=== PATIENT | female | born 1950 | race Caucasian/White ===

== ENCOUNTER 2017-03-17 09:51 | Emergency (ER) | payer MEDICARE, OTHER ==
--- NOTE | 2017-03-17 11:13 | XRAY Preliminary Report ---
Exam: XR Wrist 3 View LT Impression: Cortical irregularity involving the radial styloid process that may represent a fracture. If further characterization is needed and/or an occult scaphoid fracture is suspected, a MRI of the left wrist is recommended. Mild to moderate osteoarthritis of the first carpometacarpal joint. [facility] SITE ID: [id number]
--- NOTE | 2017-03-17 11:16 | XRAY Report ---
EXAM: LEFT WRIST RADIOGRAPHY EXAM DATE: 03/17/2017 10:55 AM. CLINICAL HISTORY: Fell. COMPARISON: None. TECHNIQUE: 3 views. FINDINGS: Joint space narrowing and osteophyte formation is seen involving the first carpal metacarpal joint. T here is no evidence of a displaced fracture. The remainder of the joint spaces are well preserved. Th ere is cortical irregularity involving the radial styloid process. This may represent a fracture. Impression: Cortical irregularity involving the radial styloid process that may represent a fracture. If further characterization is needed and/or an occult scaphoid fracture is suspected, a MRI of the left wrist is recommended. Mild to moderate osteoarthritis of the first carpometacarpal joint. [facility] Referring Provider Line: [phone] SITE ID: [id number]
--- NOTE | 2017-03-17 11:59 | ED Physician Documentation ---
PD HPI UPPER EXT INJURY - Stated complaint Stated Complaint: ARM PX - Chief complaint Chief Complaint: Ext Problem - History obtained from History obtained from: Patient - History of Present Illness Location: Left, Wrist Type of injury: Fall Timing - onset: Yesterday - Additonal information Additional information: The patient is a 67-year-old female who fell yesterday catching herself on outstretched left hand. She presents now complaining of left wrist pain. She denies any other injuries. She is right hand dominant. Review of Systems Constitutional: denies: Fever Nose: denies: Congestion Cardiac: denies: Chest pain / pressure Respiratory: denies: Dyspnea Musculoskeletal: reports: Joint pain (left wrist). 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 HEENT: Tonsil/Adenoidectomy - Present Medications Home Medications: Ambulatory Orders Medication Instructions Recorded Confirmed Spironolactone 25 mg PO BID 03/17/17 03/17/17 - Allergies Allergies/Adverse Reactions: Allergies Allergy/AdvReac Type Severity Reaction Status Date / Time No Known Drug Allergies Allergy Verified 03/17/17 10:03 - Social History Does the pt smoke?: No Smoking Status: Never smoker PD ED PE NORMAL - Vitals Vital signs reviewed: Yes (normal) - General General: Alert and oriented X 3, Well developed/nourished - HEENT HEENT: Atraumatic - Neck Neck: No bony TTP - Cardiac Cardiac: RRR - Respiratory Respiratory: No respiratory distress - Back Back: No spinal TTP - Derm Derm: No rash - Extremities Extremities: No deformity, Other (There is tenderness to palpation at the distal aspect of the left radius, just proximal to the wrist. There is no tenderness to palpation over the scaphoid bone, and no tenderness at the ulnar aspect of the wrist. She demonstrates full flexion and extension of the wrist, as well as supination and pronation of the forearm. Distal neurovascular is intact.) - Neuro Neuro: Alert and oriented X 3, No motor deficit, No sensory deficit Results - Vitals Vitals: Vital Signs - 24 hr 03/17/17 12:35 Temperature 36.1 C L Heart Rate 69 Respiratory 18 Rate Blood Pressure 149/85 H O2 Saturation 100 Oxygen O2 Source Room air - Rads (name of study) left wrist Radiology: Prelim report reviewed, EMP read contemporaneously, See rad report ( Cortical irregularity involving the radial styloid process that may represent a fracture. IF further characterization is needed and or an occult scaphoid fracture is suspected, an MRI of this left wrist is recommended. Mild to moderate osteoarthritis of the first carpometacarpal joint.) Procedures - Splint (location) left upper extremity Splint applied by: [employer] Type of splint: Prefab velcro wrist Other: Patient tolerated well, No complications, Neurovascular intact, Sling provided PD MEDICAL DECISION MAKING - ED course Complexity details: reviewed results, re-evaluated patient, considered differential, d/w patient ED course: The patient's presentation is significant for a chip fracture of the left radial styloid. Treatment in the emergency department included administration of a prefab Velcro thumb spica splint, and application of an arm sling. Ibuprofen 600 mg is administered orally. I discussed with her the expected course of injury, symptomatic treatment and outpatient follow-up, as well as potentially worrisome signs or symptoms that should prompt reevaluation in the emergency department. Departure - Departure Disposition: 01 Home, Self Care Clinical Impression: Radial styloid fracture Qualifiers: Encounter type: initial encounter Fracture type: closed Fracture alignment: nondisplaced Laterality: left Qualified Code(s): S52.515A - Nondisplaced fracture of left radial styloid process, initial encounter for closed fracture Condition: Stable Instructions: ED Fx Upper Ext Follow-Up: [facility] [Provider Group] Comments: Keep your left arm elevated as much the time as possible. Apply ice pack intermittently for the next 3 or 4 days. Use the wrist splint to help immobilize the joint. He can use the arm sling if it provides comfort. You can use ibuprofen, up to 800 mg 3 times daily to help with discomfort. Follow-up with orthopedics. Call to schedule next available appointment. Return to the emergency department if you develop increasing pain or swelling, or otherwise worsening symptoms. Discharge Date/Time: 03/17/17 12:35
[2017-03-17] MEDS ORDERED: IBUPROFEN 600 MG TABLET PO STA (12:08)
[2017-03-17] MEDS ORDERED: IBUPROFEN 600 MG TABLET PO ONE (12:15)
[2017-03-17 12:36] VITALS: BP 149/85
== END 2017-03-17 12:35 | disposition home or self-care (01) ==
LOC: ED 09:51
DX: S52.515A Nondisplaced fracture of left radial styloid process, initial encounter for closed fracture (principal); W01.0XXA Fall on same level from slipping, tripping and stumbling without subsequent striking against object, initial encounter
CPT/HCPCS: 73110; 99283; A9270

== ENCOUNTER 2017-05-19 09:15 | Outpatient (CLI) | payer MEDICARE, OTHER ==
--- NOTE | 2017-05-19 13:01 | DEXA Report ---
DEXA SCAN: 05/19/2017 CLINICAL INDICATION: Osteopenia. TECHNIQUE: Dual energy x-ray absorptiometry (DXA) was performed on a [employer] system. Regions measured are the AP spine, femoral neck, and, if needed, forearm. COMPARISON: None. In accordance with the International Society for Clinical Densitometry (ISCD) guidelines, data from previous exams may be reanalyzed using current recommendations and techniques. This is done to allow a more accurate basis for comparison with the current study. FINDINGS The data for the lumbar spine is as follows: REGION BMD (g/cm/cm) T-SCORE Z-SCORE L1 0.834 -2.5 -1.0 L2 1.167 -0.3 1.2 L3 1.130 -0.6 0.8 L4 1.024 -1.5 0.0 TOTAL 1.036 -1.2 0.2 NOTE: All evaluable vertebrae are used for classification. The data for the hip is as follows: REGION BMD (g/cm/cm) T-SCORE Z-SCORE Neck 0.755 -2.0 -0.7 TOTAL 0.834 -1.4 -0.3 NOTE: The femoral neck or total proximal femur, whichever is lowest, is used for classification. IMPRESSION: THE WHO CLASSIFICATION BASED ON THE INTERNATIONAL REFERENCE STANDARD IS OSTEOPENIA. THE FRACTURE RISK IS INCREASED. RECOMMENDATION: Patients with diagnosis of osteoporosis or osteopenia should have regular bone mineral density assessment. For those eligible for Medicare, routine testing is allowed once every 2 years. Testing frequency can be increased for patients who have rapidly progressing disease or for those who are receiving medical therapy to restore bone mass. COMMENT: World Health Organization (WHO) definitions for osteoporosis and osteopenia: NORMAL BMD: T-score at -1.0 or higher, fracture risk is low. OSTEOPENIA BMD: T-score between -1.0 and -2.5, fracture risk is increased. OSTEOPOROSIS BMD: T-score at -2.5 or lower, fracture risk high. National Osteoporosis Foundation recommends: 1. Obtain adequate dietary calcium (at least 1200 mg per day) and vitamin D (400 -800 international units per day). 2. Participate, as appropriate, in regular weightbearing and muscle- strengthening exercise. 3. Avoid tobacco use and reduce alcohol and caffeine intake. 4. For more detailed information see the website at www.NOF.org. MTDD
== END 2017-05-19 09:16 | disposition home or self-care (01) ==
LOC: DI 09:15
PROVIDERS: ATTEND Naturopath
DX: M85.89 Other specified disorders of bone density and structure, multiple sites (principal)
CPT/HCPCS: 77080

== ENCOUNTER 2018-07-04 09:05 | Emergency (ER) | payer MEDICARE, OTHER ==
--- NOTE | 2018-07-04 09:25 | ED Physician Documentation ---
PD HPI UPPER EXT INJURY - Stated complaint Stated Complaint: R ARM INJURY - History obtained from History obtained from: Patient - History of Present Illness Location: Right Type of injury: Fall (slipped on slippery area and fell, catching fall with right hand. Pain at right wrist.) Where injury occurred: Home Timing - onset: Last night, Yesterday Timing - details: Abrupt onset, Still present Improved by: Rest, Ice Worsened by: Moving, Palpating Associated symptoms: Swelling. 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 HEENT: Tonsil/Adenoidectomy - Present Medications Home Medications: Ambulatory Orders Medication Instructions Recorded Confirmed Spironolactone 25 mg PO BID 03/17/17 03/17/17 Naproxen 375 mg PO BID #20 tablet 07/04/18 Tramadol HCl 50 mg PO Q6H PRN #20 tablet 07/04/18 - Allergies Allergies/Adverse Reactions: Allergies Allergy/AdvReac Type Severity Reaction Status Date / Time No Known Drug Allergies Allergy Verified 07/04/18 09:32 - Social History Does the pt smoke?: No Smoking Status: Never smoker PD ED PE NORMAL - Vitals Vital signs reviewed: Yes - General General: Alert and oriented X 3, Well developed/nourished - HEENT HEENT: Atraumatic - Neck Neck: No bony TTP - Cardiac Cardiac: RRR, No murmur - Respiratory Respiratory: Clear bilaterally - Abdomen Abdomen: Soft, Non tender - Derm Derm: Normal color, Warm and dry - Extremities Extremities: Other (right distal forearm with tenderness and swelling. Able to move fingers. Good pulses at wrist. Normal cap refill in fingers. ) Results - Vitals Vitals: Vital Signs - 24 hr 07/04/18 07/04/18 09:10 11:30 Temperature 36.3 C L 36.4 C L Heart Rate 79 74 Respiratory 16 18 Rate Blood Pressure 169/77 H 162/71 H O2 Saturation 100 100 Oxygen O2 Source Room air - Rads (name of study) right wrist Radiology: Prelim report reviewed (distal radius fracture with slight angulation. ) Procedures - Splint (location) right wrist Splint applied by: Tech Type of splint: Fiberglass, Sugar tong Other: Patient tolerated well, No complications, Neurovascular intact, Sling provided PD MEDICAL DECISION MAKING - ED course Complexity details: reviewed results, considered differential, d/w patient Departure - Departure Disposition: 01 Home, Self Care Clinical Impression: Fall from slip, trip, or stumble Qualifiers: Encounter type: initial encounter Qualified Code(s): W01.0XXA - Fall on same le nirmal from slipping, tripping and stumbling without subsequent striking against object, initial encounter Distal radius fracture, right Qualifiers: Encounter type: initial encounter Fracture type: closed Fracture morphology: Bart' Qualified Code(s): S52.531A - Colles' fracture of right radius, initial encounter for closed fracture Condition: Stable Record reviewed to determine appropriate education?: Yes Instructions: ED Fx Colles Wrist No Redu Requ Follow-Up: [facility] [Provider Group] Prescriptions: Naproxen 375 mg PO BID #20 tablet Tramadol HCl 50 mg PO Q6H PRN #20 tablet PRN Reason: Pain Comments: Keep the splint on and keep it clean and dry. He is assigned a provide rest and elevation for the arm. Use ice to the area periodically today and tomorrow. He is some anti-inflammatory such as naproxen twice daily to help reduce inflammation and help with pain. To that add Tylenol or tramadol if needed for worse pain. Follow-up with orthopedics in about a week for recheck and re- splinting or casting. Call today for an appointment. You will likely be in a splint or cast for about 6 weeks. Discharge Date/Time: 07/04/18 11:30
--- NOTE | 2018-07-04 10:04 | XRAY Report ---
Reason: injury Procedure Date: 07/04/2018 Accession Number: [id number] / [id number] Procedure: XR - Wrist 4 View RT CPT Code: FULL RESULT: EXAM: RIGHT WRIST RADIOGRAPHY EXAM DATE: 07/04/2018 09:49 AM. CLINICAL HISTORY: Injury. COMPARISON: Wrist 3 view left 03/17/2017 10:46 AM. TECHNIQUE: 3 views. FINDINGS: There is a distal radial fracture with impaction and apex volar angulation. IMPRESSION: Impacted radial head fracture with apex volar angulation. [facility]
[2018-07-04] MEDS: HYDROcod/ACETAM 5/325 MG TABLET PO STA (10:38)
[2018-07-04] MEDS: IBUPROFEN 600 MG TABLET PO STA (10:39)
[2018-07-04] MEDS: BUPIVACAINE 0.5%-EPI 1:200000 PF 10 ML VIAL SUBQ STA (10:39)
[2018-07-04 12:43] VITALS: BP 162/71
== END 2018-07-04 11:30 | disposition home or self-care (01) ==
LOC: ED 09:05
DX: S52.121A Displaced fracture of head of right radius, initial encounter for closed fracture (principal); I10 Essential (primary) hypertension; W01.0XXA Fall on same level from slipping, tripping and stumbling without subsequent striking against object, initial encounter; Y92.009 Unspecified place in unspecified non-institutional (private) residence as the place of occurrence of the external cause
CPT/HCPCS: 29125; 73110; 99283; A9270

== ENCOUNTER 2021-10-12 11:24 | Outpatient (CLI) | payer MEDICARE, OTHER ==
--- NOTE | 2021-10-12 13:51 | XRAY Report ---
PROCEDURE: Hand 3 View LT INDICATIONS: LEFT HAND PAIN TECHNIQUE: 3 views of the hand(s) acquired. COMPARISON: None FINDINGS: Bones: There is a comminuted, oblique fracture through the mid diaphyseal portion of the metacarpal. There is minimal displacement. No intra-articular extension. No suspicious bony lesions. Soft tissues: No suspicious soft tissue calcifications. IMPRESSION: Comminuted minimally displaced fifth metacarpal fracture without intra-articular extension. Reviewed by: Nohemy Camarillo MD on 10/12/2021 1:50 PM [facility] Approved by: Nohemy Camarillo MD on 10/12/2021 1:50 PM [facility] Station ID: [id number]
== END 2021-10-12 11:25 | disposition home or self-care (01) ==
LOC: DI.WOS 11:24
PROVIDERS: ATTEND Physician Assistant
DX: S62.327A Displaced fracture of shaft of fifth metacarpal bone, left hand, initial encounter for closed fracture (principal)

== ENCOUNTER 2021-10-27 08:00 | Outpatient (CLI) | payer MEDICARE, OTHER ==
--- NOTE | 2021-10-27 11:38 | XRAY Report ---
PROCEDURE: Hand 3 View LT INDICATIONS: 5TH MC FX TECHNIQUE: 3 views of the hand(s) acquired. COMPARISON: 3 views of the left hand dated 10/12/2021 FINDINGS: Bones: There is partial interval healing of the left fifth metatarsal fracture when compared with the prior study. Fracture lines are slightly less conspicuous than on the prior study. Fracture fragment s are in unchanged anatomic alignment. As before, there is diffuse interphalangeal joint space narrow ing suggesting osteoarthritis. Soft tissues: No suspicious soft tissue calcifications. IMPRESSION: Partial interval healing of the fifth metatarsal fracture. Reviewed by: Evelyne Banegas MD on 10/27/2021 11:37 AM PDT Approved by: Evelyne Banegas MD on 10/27/2021 11:37 AM PDT Station ID: [id number]
== END 2021-10-27 23:59 ==
LOC: DI.WOS 08:00
PROVIDERS: ATTEND Physician Assistant
DX: S62.327D Displaced fracture of shaft of fifth metacarpal bone, left hand, subsequent encounter for fracture with routine healing (principal)

== ENCOUNTER 2021-11-10 11:00 | Outpatient (CLI) | payer MEDICARE ==
--- NOTE | 2021-11-11 02:18 | XRAY Report ---
PROCEDURE: Hand 3 View LT INDICATIONS: 5TH MC FRACTURE TECHNIQUE: 3 views of the hand acquired. COMPARISON: 10/30/2021 10/12/2021 FINDINGS: Bones: Mildly displaced spiral fracture of the fifth metacarpal shaft demonstrates no change in align ment. The fracture lines are less distinct but remain visible. There is partial bridging callus. Mild osteoarthritic changes redemonstrated at the interphalangeal joints and the first carpometacarpal roxana int. No suspicious bony lesions. Soft tissues: No suspicious soft tissue calcifications. IMPRESSION: 1. Healing fracture of the fifth metacarpal shaft without change in alignment. Reviewed by: Aftab Foote MD on 11/11/2021 2:17 AM PDT Approved by: Aftab Foote MD on 11/11/2021 2:17 AM PDT Station ID: [id number]
== END 2021-11-10 23:59 | disposition home or self-care (01) ==
LOC: DI.WOS 11:00
PROVIDERS: ATTEND Physician Assistant
DX: S62.327D Displaced fracture of shaft of fifth metacarpal bone, left hand, subsequent encounter for fracture with routine healing (principal)

== ENCOUNTER 2021-12-10 15:53 | Outpatient (CLI) | payer MEDICARE ==
--- NOTE | 2021-12-11 18:32 | Ultrasound Report ---
PROCEDURE: Ext Limited Non Vascular INDICATIONS: LEFT LOWER LEG LUMP TECHNIQUE: Real-time scanning was performed of the , with image documentation. COMPARISON: None. FINDINGS: Sonographic images of the left knee demonstrate a focus of heterogeneous echogenicity near the skin surface measuring approximately 1.4 x 0.7 x 0.8 cm. There is no appreciable increased vascu larity. IMPRESSION: Nonspecific heterogeneous echogenicity within the soft tissues at the level of the knee as described above. While this could represent an area of varicosity, other etiologies cannot be excl uded. Further evaluation with CT or MRI is recommended. Reviewed by: Nohemy Camarillo MD on 12/11/2021 6:31 PM PDT Approved by: Nohemy Camarillo MD on 12/11/2021 6:31 PM PDT Station ID: [id number]
== END 2021-12-10 15:54 | disposition home or self-care (01) ==
LOC: DI 15:53
PROVIDERS: ATTEND Physician Assistant
DX: D21.22 Benign neoplasm of connective and other soft tissue of left lower limb, including hip (principal); M25.561 Pain in right knee; R93.6 Abnormal findings on diagnostic imaging of limbs; R93.89 Abnormal findings on diagnostic imaging of other specified body structures